=== PATIENT | female | born 1955 | race Caucasian/White ===

== ENCOUNTER → 2018-04-13 14:25 | Outpatient (CLI) | payer BC, SELFPAY ==
--- NOTE | 2018-04-13 | DI.MG.S_ITS ---
BILATERAL DIGITAL SCREENING MAMMOGRAM 3D/2D WITH CAD: 04/13/2018 CLINICAL: Routine screening. Family history of breast cancer. Comparison is made to exams dated: 01/21/2017 mammogram, 01/17/2016 mammogram, 12/14/2014 mammogram, and 12/01/2014 mammogram - [facility]. The tissue of both breasts is heterogeneously dense. This may lower the sensitivity of mammography. Current study was also evaluated with a Computer Aided Detection (CAD) system. No significant masses, calcifications, or other findings are seen in either breast. There has been no significant interval change. IMPRESSION: NEGATIVE There is no mammographic evidence of malignancy. A 1 year screening mammogram is recommended. This exam was interpreted at Station ID: [id number]. NOTE: For mammograms, a report in lay terms will be sent to the patient. Approximately 15% of breast malignancies will not be visualized mammographically. In the management of a palpable breast mass, a negative mammogram must not discourage biopsy of a clinically suspicious lesion. Electronically Signed By: Char ibanez/melanie:04/14/2018 08:57:26 letter sent: Normal Exam ACR BI-RADS Category 1: Negative 3341F
== END ==
PROVIDERS: PCP Family Medicine
DX: Z12.31 Encounter for screening mammogram for malignant neoplasm of breast (principal); M85.88 Other specified disorders of bone density and structure, other site; Z80.3 Family history of malignant neoplasm of breast; Z78.0 Asymptomatic menopausal state; Z82.62 Family history of osteoporosis
CPT/HCPCS: 77063; 77067; 77080

== ENCOUNTER → 2018-04-16 10:17 | Outpatient (CLI) | payer BC, SELFPAY ==
[2018-04-16 11:38] LABS: Add Manual Diff / Slide Review NO; Basophils Percent Auto 0.6 % (0-2); Eosinophils Percent Auto 1.7 % (2-4); Hemoglobin 12.9 g/dL (12.0-16.0); Lymphocytes Percent Auto 21.8 % (25-40); Mean Corpuscular HGB Conc 34.1 % (30-36); Mean Corpuscular Hemoglobin 31.3 PG (26-34); Mean Corpuscular Volume 91.9 fL (80-100); Monocytes Percent Auto 9.6 % (3-14); Neutrophils Absolute Auto 3300 /uL (3000-5900); Neutrophils Percent Auto 66.3 % (50-75); Platelet Count 263 X10^3/uL (150-400); Red Blood Cell Count 4.13 X10^6/uL (4.0-5.2); Red Cell Distribution Width 14.1 % (11.6-14.8)
[2018-04-16 11:51] LABS: Alanine Aminotransferase 52 IU/L (9-52); Albumin 4.6 g/dL (3.5-5.0); Albumin Globulin Ratio 1.7 (1.0-2.8); Alkaline Phosphatase 87 U/L (38-126); Aspartate Aminotransferase 42 IU/L (14-36); Bilirubin Total 0.7 mg/dL (0.2-1.3); Blood Urea Nitrogen 21 mg/dL (7-17); Calcium 9.3 mg/dL (8.4-10.2); Carbon Dioxide 31 mmol/L (22-32); Chloride 101 mmol/L (98-107); Cholesterol 183 mg/dL (140-199); Estimated Glomerular Filt Rate > 60.0 mL/min (>60); Globulin 2.7 g/dL (1.7-4.1); Glucose 99 mg/dL (80-110); HDL Cholesterol 79 mg/dL (40-60); HEMOLYSIS < 15 (0-50); LDL Cholesterol Calculated 88 mg/dL (<100); Magnesium 1.9 mg/dL (1.6-2.3); Potassium 3.7 mmol/L (3.4-5.1); Sodium 140 mmol/L (137-145); Total Protein 7.3 g/dL (6.3-8.2); Triglycerides 80 mg/dL (35-150)
[2018-04-16 12:28] LABS: Ferritin 21.4 ng/mL (11.1-264)
[2018-04-16 13:24] LABS: Thyroid Stimulating Hormone 1.74 uIU/mL (0.47-4.68)
== END ==
PROVIDERS: PCP Family Medicine; Visit Provider Family Medicine
DX: Z00.00 Encounter for general adult medical examination without abnormal findings (principal); E78.2 Mixed hyperlipidemia; G25.81 Restless legs syndrome
CPT/HCPCS: 36415; 80053; 80061; 82728; 83735; 84443; 85025

== ENCOUNTER → 2019-01-08 14:35 | Outpatient (CLI) | payer MEDICARE, OTHER, SELFPAY ==
--- NOTE | 2019-01-08 | DI.RAD.S_ITS ---
PROCEDURE: XR CERVICAL SPINE 4V OR 5V INDICATIONS: Neck pain TECHNIQUE: 5 views of the cervical spine were acquired. COMPARISON: None. FINDINGS: Bones: No fractures or dislocations to the C7 level. No suspicious bony lesions. There is straightening of cervical curvature with mild cervical kyphosis. There is degenerative disease, moderate at C5-C6 and mild at C4-C5. Mild bilateral facet arthropathy scattered in cervical spine. There is reduced range of motion on flexion with normal bony alignment. Soft tissues: Prevertebral soft tissues are normal in thickness. IMPRESSION: Degenerative disc and facet disease. Reduced range of motion on flexion. Dictated by: Sherin Prado M.D. on 01/08/2019 at 17:37 Approved by: Sherin Prado M.D. on 01/08/2019 at 17:39
== END ==
PROVIDERS: PCP Family Medicine; Visit Provider Family Medicine
DX: M54.2 Cervicalgia (principal); M50.30 Other cervical disc degeneration, unspecified cervical region
CPT/HCPCS: 72050

== ENCOUNTER → 2019-02-12 10:44 | Outpatient (CLI) | payer MEDICARE, OTHER, SELFPAY ==
--- NOTE | 2019-02-12 | DI.RAD.S_ITS ---
PROCEDURE: FL BARIUM SWALLOW INDICATIONS: COUGH COMPARISON: None. FINDINGS: Function: There is normal esophageal peristalsis. Spontaneous gastroesophageal reflux seen to level of the midesophagus. Morphology: Air-contrast images demonstrate normal mucosal morphology. Single contrast views show no esophageal strictures, extrinsic mass effects, or diverticula. Limited images of the stomach demonstrate normal appearance. IMPRESSION: Spontaneous gastroesophageal reflux. No stricture. Dictated by: Bhavin St M.D. on 02/12/2019 at 13:12 Approved by: Bhavin St M.D. on 02/12/2019 at 13:13
== END ==
PROVIDERS: PCP Family Medicine; Visit Provider Family Medicine
DX: K21.9 Gastro-esophageal reflux disease without esophagitis (principal)
CPT/HCPCS: 74220

== ENCOUNTER → 2019-02-18 11:40 | Outpatient (CLI) | payer MEDICARE, OTHER, SELFPAY | PROVIDERS: PCP Family Medicine; Visit Provider Family Medicine | DX: R20.2 Paresthesia of skin (principal) | CPT/HCPCS: 95885; 95886; 95911 ==

== ENCOUNTER 2019-02-19 12:49 | Day surgery (SDC) | payer MEDICARE, OTHER, SELFPAY ==
--- NOTE | 2019-02-19 | PATH_ITS ---
[facility] Accession Number: [id number] . 01 Material submitted: . colon - ASCENDING COLON POLYP 2 MM . 01 Clinical history: . ENCOUNTER FOR SCREENING FOR MALIGNANT NEOPLASM FAMILY HISTORY OF COLONIC POLYPS PERSONAL HISTORY OF COLONIC POLYPS . 02 Diagnosis: Ascending Colon Polyp, 2 mm, Biopsy: Colonic mucosa with prominent benign lymphoid aggregate. Negative for serrated lesion, dysplasia or malignancy. Additional step sections examined. MRV/02/24/2019 . 02 Electronically signed: . Ambrocio Baptiste MD, PhD, Pathologist NPI- [id number] . 01 Gross description: . ASCENDING COLON POLYP 2 MM: Received in formalin is 1 fragment(s) of patterson, soft tissue measuring 0.5 x 0.4 x 0.1 cm submitted entirely in 1 cassette(s) /CKI /CKI . 02 Pathologist provided ICD-10: K63.5 . 02 CPT . 916081 Performed at: 01 [facility] [address], [place], [place] [id number] MD Lev Serrato MD Phone: [phone] Performed at: 02 [facility] [address] [place], [place] [id number] MD Janet Mead MD Phone: [phone]
[2019-02-19] MEDS: SODIUM CHLORIDE 0.9% 1,000 ML 200 ML IV (13:15)
[2019-02-19] MEDS: HYOSCYAMINE 0.125 MG TABLET PO (13:20)
[2019-02-19 13:23] VITALS: BP 138/80; PULSE 68; RESP 16; TEMP 36.7; O2SAT 98; BMI 26.5
[2019-02-19] MEDS: fentaNYL 250 MCG/5 ML INJ IV (13:59)
[2019-02-19] MEDS: MIDAZOLAM 5 MG/5 ML VIAL IV (14:00)
--- NOTE | 2019-02-19 14:39 | PM.OP.ENDO ---
Operative Date/Time/Diagnoses Date of procedure: 02/19/19 Time of procedure: 14:03 Pre-op diagnosis: 1. Screening for colon cancer 2. History of colon polyps 3. Family history of colon Post-op diagnosis: other (1. Ascending polyp x1, 2 mm, removed with cold biopsy forceps) Procedure & Clinicians Study performed: Colonoscopy Same procedure as scheduled: Yes Indications: 1. Screening for colon cancer 2. History of colon polyps 3. Family history of colon polyps Surgeon: Moni Rodriguez Procedure Notes SCOAP/Timeout: 14:03 Procedure in detail: ENDOSCOPIST: Moni Rodriguez MD Anesthesia RN: Ailyn Chapman MD Anesthesia start time: 2:03 pm Anesthesia and time: 2:38 p.m. PROCEDURE: Colonoscopy with biopsy INDICATIONS: 1. Screening for colon cancer 2. History of colon polyps 3. Family history of colon polyps MEDICATION: Levsin 0.125 mg sublingual, incremental doses of Versed and fentanyl until appropriate level sedation achieved. ASA CLASS: 2 CECAL WITHDRAWAL TIME: 16 minutes COMPLICATIONS: None. EXTENT OF PROCEDURE: Cecum. QUALITY OF PREP: Good with portions of liquid stool. PROCEDURE: Prior to insertion of the colonoscope, a digital rectal examination was accomplished with circumferential palpation of the distal rectal mucosa without significant findings being noted. The high-definition colonoscope was passed into the rectum in the usual fashion and advanced over to the cecum without difficulty. The ileocecal valve, appendiceal stoma, and medial wall all could be inspected and no abnormalities were seen. ASCENDING COLON: As the colonoscope was withdrawn, care was taken to expose and inspect the haustral folds and a 2 mm polyp was noted and removed with cold biopsy forceps, excellent hemostasis noted. HEPATIC FLEXURE: Normal no polyps, diverticula or other abnormalities. TRANSVERSE COLON: Normal no polyps, diverticula or other abnormalities. DESCENDING COLON: Normal no polyps, diverticula or other abnormalities. SIGMOID COLON: Normal no polyps, diverticula or other abnormalities. RECTUM: Normal. J maneuver was produced. There was no significant perianal disease. The J maneuver was broken. The remainder of the rectum was inspected and there was no external hemorrhoid disease. The scope was withdrawn. IMPRESSION: 1. Ascending polyp x1, 2 mm, removed with cold biopsy forceps PLAN: 1. Follow-up in clinic status post pathology results. The possibility of a missed lesion including a malignancy has been discussed with the patient previously. Potential alarm symptoms have been discussed and should be reported immediately. Scope withdrawal time: 16 minutes Sedation minutes: 35 Findings: polyp Specimen(s): other (Ascending polyp x1, 2 mm) Complications: none Impression: As above Post-procedure Recommendations: Will call with biopsy results Plan for aftercare: Routine post colonoscopy care instructions provided. Follow up: weeks (Two) Disposition: PACU
[2019-02-19 14:44] VITALS: BP 111/66; PULSE 58; RESP 10; TEMP 36; O2SAT 97
[2019-02-19 14:49] VITALS: BP 112/67; PULSE 68; RESP 12; O2SAT 95
[2019-02-19 14:56] VITALS: BP 112/71; PULSE 60; RESP 19; O2SAT 98
--- NOTE | 2019-02-19 14:57 | SUR.PHASEI ---
To pacu awake, oriented.HOB elevated, juice given. Report given to Martine Arzola RN. stable, and pleasant
[2019-02-19 15:12] VITALS: BP 112/67; PULSE 58; RESP 15; TEMP 36.1; O2SAT 98
== END 2019-02-19 15:20 | disposition home or self-care (01) ==
LOC: ENDO 12:51
PROVIDERS: PCP Family Medicine; Visit Provider Student in an Organized Health Care Education/Training Program
PROC: 0DJD8ZZ Inspection of Lower Intestinal Tract, Via Natural or Artificial Opening Endoscopic (ICD-10-PCS; CPT 45378; principal; 2019-02-19 14:00)
DX: Z86.010 Personal history of colon polyps (principal); D12.2 Benign neoplasm of ascending colon
CPT/HCPCS: 45380; 88305; J2250; J3010

== ENCOUNTER → 2019-04-05 15:33 | Outpatient (CLI) | payer MEDICARE, OTHER, SELFPAY ==
--- NOTE | 2019-04-05 | DI.RAD.S_ITS ---
PROCEDURE: XR KNEE LT 3V INDICATIONS: PAIN IN LEFT KNEE TECHNIQUE: 3 views of the knee were acquired. COMPARISON: None. FINDINGS: Bones: No fractures or dislocations. No suspicious bony lesions. Tricompartmental periarticular osteophyte formation. Soft tissues: Moderate joint effusion. No suspicious soft tissue calcifications. IMPRESSION: Moderate joint effusion and mild early knee joint degeneration. Dictated by: Jamshid JANSEN Interpreted: Beni Fierro MD on 04/05/2019 at 16:07 Approved by: Beni Fierro M.D. on 04/05/2019 at 17:07
== END ==
PROVIDERS: Family Provider Physical Therapist; PCP Family Medicine; Visit Provider Family Medicine
DX: M25.562 Pain in left knee (principal); M25.462 Effusion, left knee
CPT/HCPCS: 73562

== ENCOUNTER 2019-04-22 19:01 | Emergency (ER) | payer MEDICARE, OTHER, SELFPAY ==
[2019-04-22 19:06] VITALS: BP 104/70; PULSE 62; RESP 16; TEMP 36.7; O2SAT 97
--- NOTE | 2019-04-22 19:18 | DI.RAD.S_ITS ---
PROCEDURE: XR KNEE LT 3V INDICATIONS: pain sp fall/twisting TECHNIQUE: 3 views of the knee were acquired. COMPARISON: [facility], CR, XR KNEE LT 3V, 04/05/2019, 15:36. FINDINGS: Bones: No fractures or dislocations. No suspicious bony lesions. Soft tissues: No joint effusion. No suspicious soft tissue calcifications. IMPRESSION: No acute radiographic findings. If pain persists, followup imaging in 5-7 days is recommended to exclude occult fracture. Dictated by: Char Overton M.D. on 04/22/2019 at 19:47 Approved by: Char Overton M.D. on 04/22/2019 at 19:51
--- NOTE | 2019-04-22 21:03 | ED_ITS ---
HPI - Extremity Injury (Lower) <JOSE MARIA Herring - Last Filed: 04/22/19 21:10> General Chief Complaint: Extremity Injury, Lower Stated Complaint: twisted her left knee and can now barely stand on Time Seen by Provider: 04/22/19 19:16 Source: patient Mode of arrival: Wheelchair Limitations: no limitations History of Present Illness HPI Narrative: The patient is a very memorable and enjoyable 63-year-old female nonsmoker with history of hypertension who presents with a chief complaint of left knee pain. She states that she has a history of left knee pain, has been receiving physical therapy for a when she twisted felt a pop and then had a difficulty ambulating afterwards. She did not fall. She denies any other trauma to the knee, but states she rather twisted and felt a pop. She states her knee now feels unstable. She has recently had carpal tunnel surgery and has leftover pain medication. She took a [place] and states that I had slight improvement on her pain. Related Data Home Medications Medication Instructions Recorded Confirmed glucosamine sulfate [Cidatrine] 500 mg PO DAILY #0 10/11/17 02/19/19 cmp estradiol harpreet See Rx Instructions .ROUTE .COMPLEX 03/10/18 02/19/19 albuterol sulfate [Ventolin HFA] 1 puff INHALATION BID PRN 02/19/19 02/19/19 Previous Rx's Medication Instructions Recorded Flovent Diskus 50 mcg INH BID #1 pkg 03/11/17 losartan 100 mg tablet 100 mg PO QDAY #90 tab 01/15/18 pramipexole 0.5 mg tablet 0.5 mg PO QDAY #90 tab 01/15/18 simvastatin 40 mg tablet 40 mg PO HS #90 tab 01/15/18 escitalopram oxalate 20 mg tablet 20 mg PO QDAY #90 tab 02/02/18 hydrochlorothiazide 50 mg tablet 50 mg PO QDAY #90 tab 02/02/18 Allergies Allergy/AdvReac Type Severity Reaction Status Date / Time azithromycin [From ZITHROMAX] Allergy Unknown RASH Verified 01/05/19 11:41 Review of Systems <JOSE MARIA Herring - Last Filed: 04/22/19 21:10> Review of Systems Narrative: GENERAL: Denies chills, fatigue, malaise, fever, sweats. HEENT: Denies sinus pain, ear pain, sore throat, difficulty swallowing, dizziness. RESPIRATORY: Denies dyspnea, cough, wheezing, hemoptysis, sputum. CARDIOVASCULAR: Denies chest pain, palpitations, orthopnea, edema, GASTROINTESTINAL: Denies nausea, vomiting, abdominal pain, diarrhea, constipation, melena. : Denies dysuria, frequency, incontinence, hematuria, urinary retention. MUSCULOSKELETAL: See HPI SKIN: Denies rash, skin lesions, or other NEUROLOGIC: Denies weakness, headache, numbness, change in speech, confusion, seizures, incoordination. PSYCHIATRIC: No concerning psychosocial issues. 12 point review of systems is negative except for those stated above Patient History <JOSE MARIA Herring - Last Filed: 04/22/19 21:10> Medical History Abnormal chest xray (Resolved ~2007) Actinic keratosis (Chronic ~2009) ADHD (Chronic) Anxiety (Chronic) Chicken pox (Resolved) Coccidioidomycosis (Resolved ~10/2007) Colon polyps (Chronic ~2009) Hyperlipidemia (Chronic ~1994) Hypertension (Chronic ~1989) Measles (Resolved) Restless leg syndrome (Chronic ~1994) Seasonal allergies (Chronic ~2008) Skin cancer (Chronic ~2008) Sleep apnea (Chronic ~2009) Surgical History Anesthesia (Resolved) Status post colonoscopy Family History Father Age: 92 Congestive heart failure Skin cancer Heart disease Hypertension High cholesterol Grandmother Heart disease Mother Age: 92 Hypertension Grandmother Heart disease Hypertension Sister Age: 67 Pre-diabetes Hypertension High cholesterol Grandfather Leukemia Social History household members: none Smoking Status: Never smoker alcohol intake frequency: 0-2 drinks per day Substance Use Type: does not use Exam <JOSE MARIA Herring - Last Filed: 04/22/19 21:10> Narrative Exam Narrative: GENERAL: This is a well-nourished, well-developed patient, in no acute distress HEAD: Atraumatic. Normocephalic. No temporal or scalp tenderness. EYES: Pupils equal round and reactive. Extraocular motions intact. No scleral icterus. No injection or drainage. ENT: Nose without bleeding, purulent drainage or septal hematoma. Throat without erythema, tonsillar hypertrophy or exudate. Uvula midline. Airway patent. NECK: Trachea midline. No JVD or lymphadenopathy. Supple, nontender, no meningeal signs. CARDIOVASCULAR: Regular rate and rhythm RESPIRATORY: No cough. No increased respiratory effort. No accessory muscle use. EXTREMITIES: Generalized pain to palpation left knee. Patient is able to pick left leg off the stretcher and extend knee. Positive left pedal pulses. Negative anterior posterior drawer test. Pain on varus and valgus, pain on Melanie's. Catching on Melanie's. BACK: Nontender without deformity or crepitance. No flank tenderness. NEURO: AOx3. SKIN: No rash or erythema on visible skin. No ecchymosis noted on the. Initial Vital Signs Initial Vital Signs: Vital Signs Temperature 98.0 F 04/22/19 19:06 Pulse Rate 62 04/22/19 19:06 Respiratory Rate 16 04/22/19 19:06 Blood Pressure 104/70 04/22/19 19:06 Pulse Oximetry 97 04/22/19 19:06 <Maria R Esquivel DO - Last Filed: 04/23/19 00:50> Initial Vital Signs Initial Vital Signs: Vital Signs Temperature 98.0 F 04/22/19 19:06 Pulse Rate 62 04/22/19 19:06 Respiratory Rate 16 04/22/19 19:06 Blood Pressure 104/70 04/22/19 19:06 Pulse Oximetry 97 04/22/19 19:06 Procedures <JOSE MARIA Herring - Last Filed: 04/22/19 21:10> Orthopedic Splinting/Casting Injury #1: Side: left Lower Extremity Injury Location: knee Lower Extremity Immobilizer: knee immobilizer Post splinting neuro exam: intact Post splinting vascular exam: intact Placed by: Nursing Course <JOSE MARIA Herring - Last Filed: 04/22/19 21:10> Orders Ordered: ED Orders 04/22/19 19:18 XR knee LT 3V Stat Vital Signs Vital signs: Vital Signs - 8 hr 04/22/19 19:06 04/22/19 21:05 Temperature 98.0 F Pulse Rate 62 61 Respiratory Rate 16 15 Blood Pressure 104/70 Blood Pressure [Left Arm] 110/72 Pulse Oximetry 97 98 <Maria R Esquivel DO - Last Filed: 04/23/19 00:50> Orders Ordered: ED Orders 04/22/19 19:18 XR knee LT 3V Stat Vital Signs Vital signs: Vital Signs - 8 hr 04/22/19 19:06 04/22/19 21:05 Temperature 98.0 F Pulse Rate 62 61 Respiratory Rate 16 15 Blood Pressure 104/70 Blood Pressure [Left Arm] 110/72 Pulse Oximetry 97 98 MDM - Extremity Injury (Lower) <JOSE MARIA Herring - Last Filed: 04/22/19 21:10> Imaging Data Knee x-ray: Radiologist's impression: [address] [address] XRay Report Signed Patient: Joan Gallagher GMR#: [id number] : 4Acct:[id number] Age/Sex: 63 / FDate of Service: 04/22/19 Loc: ED Accession Number: [id number] Procedure: XR knee LT 3V Ordering Provider: Chyna Miles PROCEDURE: XR KNEE LT 3V INDICATIONS: pain sp fall/twisting TECHNIQUE: 3 views of the knee were acquired. COMPARISON: [facility], , XR KNEE LT 3V, 04/05/2019, 15:36. FINDINGS: Bones: No fractures or dislocations. No suspicious bony lesions. Soft tissues: No joint effusion. No suspicious soft tissue calcifications. IMPRESSION: No acute radiographic findings. If pain persists, followup imaging in 5-7 days is recommended to exclude occult fracture. Dictated by: Char Overton M.D. on 04/22/2019 at 19:47 Approved by: Char Overton M.D. on 04/22/2019 at 19:51 MDM Narrative Medical decision making narrative: The patient is a memorable an enjoyable 63-year-old female who presents with a chief complaint of acute knee pain after twisting it today. Her x-ray shows no fracture, but I highly suspect a soft tissue injury. She is placed in a knee immobilizer for stability and is able to ambulate without incident after this placement. She is neurovascularly intact before and after. I discussed at length rest ice compression elevation as well as [id number] pain medications as needed and able. Encouraged follow-up with PCP, and gave her contact information for [facility]. Patient was discharged with daughter. They both state understanding of return precautions as well as follow-up care and have no questions or concerns upon discharge. Discharge Plan Departure Patient Disposition: Home Clinical Impression: Acute knee pain Qualifiers: Laterality: left Qualified Code(s): M25.562 - Pain in left knee Discharge Date/Time: 04/22/19 21:22 Instructions: How To Perform RICE (Rest, Ice, Compress, Elevate), DI for Knee Pain Activity Restrictions/Additional Instructions: Thank you for being such a memorable and enjoyable patient. As I discussed, your x-ray shows no acute fracture. This does not rule out a soft tissue injury such as a ligament or tendon injury. It is important that you follow up with primary care provider, especially if worsening or no improvement. There can be fractures that did not show up on initial x-ray. Please follow up with primary care provider in the next few days. I have also given you contact information for [facility] I suggest rest ice compression elevation. As well as [id number] pain medications as needed and able. Prescriptions: No Action Flovent Diskus 50 MCG blister with device 50 mcg INH BID Qty: 1 RF: 0 glucosamine sulfate [Cidatrine] 500 MG tablet 500 mg PO DAILY Qty: 0 RF: 0 escitalopram oxalate 20 mg tablet 20 mg PO QDAY Qty: 90 RF: 3 hydrochlorothiazide 50 mg tablet 50 mg PO QDAY Qty: 90 RF: 3 losartan 100 mg tablet 100 mg PO QDAY Qty: 90 RF: 3 pramipexole 0.5 mg tablet 0.5 mg PO QDAY Qty: 90 RF: 3 simvastatin 40 mg tablet 40 mg PO HS Qty: 90 RF: 3 cmp estradiol harpreet See Rx Instructions .ROUTE .COMPLEX RF: 0 albuterol sulfate [Ventolin HFA] 90 MCG/PUFF HFA aerosol inhaler 1 puff INHALATION BID PRN (Reason: Shortness Of Breath) RF: 0 Referrals: [facility] [Provider Group] Ranjith Boone MD [Primary Care Provider] -
[2019-04-22 21:05] VITALS: BP 110/72; PULSE 61; RESP 15; O2SAT 98
== END 2019-04-22 21:22 | disposition home or self-care (01) ==
PROVIDERS: Emergency Provider Nurse Practitioner Family; Family Provider Physical Therapist; PCP Family Medicine
DX: M25.562 Pain in left knee (principal)
CPT/HCPCS: 29530; 73562; 99283

== ENCOUNTER → 2019-05-24 12:06 | Outpatient (CLI) | payer MEDICARE, OTHER, SELFPAY ==
--- NOTE | 2019-05-24 | DI.MG.S_ITS ---
BILATERAL DIGITAL SCREENING MAMMOGRAM 3D/2D WITH CAD: 05/24/2019 CLINICAL: Routine screening. Family history of breast cancer. Comparison is made to exams dated: 04/13/2018 mammogram, 01/21/2017 mammogram, 01/17/2016 mammogram, 12/01/2014 mammogram, and 09/17/2013 mammogram - [facility]. The tissue of both breasts is heterogeneously dense. This may lower the sensitivity of mammography. Current study was also evaluated with a Computer Aided Detection (CAD) system. No significant masses, calcifications, or other findings are seen in either breast. There has been no significant interval change. IMPRESSION: NEGATIVE There is no mammographic evidence of malignancy. A 1 year screening mammogram is recommended. This exam was interpreted at Station ID: [id number]. NOTE: For mammograms, a report in lay terms will be sent to the patient. Approximately 15% of breast malignancies will not be visualized mammographically. In the management of a palpable breast mass, a negative mammogram must not discourage biopsy of a clinically suspicious lesion. Electronically Signed By: Williams barrientos/melanie:05/24/2019 17:58:05 letter sent: Normal Exam ACR BI-RADS Category 1: Negative 3341F
== END ==
PROVIDERS: Family Provider Physical Therapist; PCP Family Medicine; Visit Provider Family Medicine
DX: Z12.31 Encounter for screening mammogram for malignant neoplasm of breast (principal); Z80.3 Family history of malignant neoplasm of breast
CPT/HCPCS: 77063; 77067

== ENCOUNTER → 2019-06-10 06:36 | Outpatient (CLI) | payer MEDICARE, OTHER, SELFPAY ==
--- NOTE | 2019-06-10 | DI.MRI.S_ITS ---
PROCEDURE: MR KNEE LT WO/W CON INDICATIONS: Pain in left knee TECHNIQUE: Noncontrast sagittal PD fast spin echo and T2 fast spin echo with fat saturation, sagittal 3-D FLASH with fat saturation; coronal T1 spin echo and PD fast spin echo with fat saturation, and axial T1 spin echo and PD fast spin echo with fat saturation through the knee. Post-contrast axial, coronal, and sagittal T1 spin echo with fat saturation through the knee. COMPARISON: None. FINDINGS: Image quality: Excellent. Menisci: There is peripheral displacement of medial meniscus bowing medial collateral ligament. Oblique tear involving the body and posterior horn of medial meniscus is seen extending to inferior articulating surface. No evidence of focal lateral meniscal tear. The The meniscal root ligaments appear intact. Cruciate ligaments: The anterior and posterior cruciate ligaments appear intact. Medial structures: There is very low-grade proximal MCL sprain near its femoral insertion. The posterior oblique ligament, semimembranosus tendon insertions, and oblique popliteal liagment, and meniscocapsular junction appear intact. Visualized portions of the pes anserinus tendons appear normal. No abnormal bursal fluid. Lateral structures: The lateral collateral ligament, long and short heads of the biceps femoris tendon appear intact. The popliteus tendon appears normal; the popliteofibular ligament appears intact. The posterosuperior and anteroinferior popliteomeniscal fascicles appear intact. The arcuate and fabellofibular ligaments appear intact, around the lateral inferior geniculate artery. Iliotibial band appears normal. Anterior structures: The quadriceps and patellar tendons appear intact. Patellar alignment is normal. No femoral trochlear dysplasia or ventral trochlear prominence. No edema in the infrapatellar fat pad. Bones and cartilage: No suspicious osseous enhancement. Marrow edema is seen in medial periphery of the medial femoral condyle and adjacent medial portion of proximal tibia extending to medial tibial plateau. No discrete fracture line is seen. Marrow edema is also noted involving medial portion of patella with no definite fracture line seen. There is low-grade chondromalacia involving medial femoral tibial compartment. Chondromalacia involving medial facet of patella cartilage is also seen extending to the apex. Joint space: There is small to moderate amount of joint fluid, no gross loose body. No Gonzalez's cyst. Normal appearing synovial plicae are incidentally noted. No suspicious soft tissue enhancement. IMPRESSION: 1. Oblique tear involving body and posterior horn of medial meniscus extending to inferior articulating surface. No focal lateral meniscal tear. 2. Likely bony contusion involving medial femoral condyle and adjacent medial portion of proximal tibia. Likely bony contusion involving medial portion of patella. No definite fracture or dislocation. 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 3. Small to moderate amount of joint fluid, no gross intra-articular loose body. 4. Cruciate ligaments are intact. Very low-grade proximal MCL sprain. 5. No area of abnormal contrast enhancement. Dictated by: Christiano Murcia M.D. on 06/10/2019 at 9:23 Approved by: Christiano Murcia M.D. on 06/10/2019 at 9:38
== END ==
PROVIDERS: Family Provider Physical Therapist; PCP Family Medicine; Visit Provider Internal Medicine
DX: M25.562 Pain in left knee (principal); S83.242A Other tear of medial meniscus, current injury, left knee, initial encounter; M22.42 Chondromalacia patellae, left knee
CPT/HCPCS: 73723

== ENCOUNTER → 2020-01-31 08:58 | Outpatient (CLI) | payer MEDICARE, OTHER, SELFPAY ==
--- NOTE | 2020-01-31 09:00 | DI.RAD.S_ITS ---
PROCEDURE: XR HAND RT MIN 3V INDICATIONS: R hand pain with erythema, 3rd-5th digits TECHNIQUE: 3 views of the hand(s) acquired. COMPARISON: None. FINDINGS: Bones: No fractures or dislocations. Carpal bones are normally aligned. No suspicious bony lesions. No trauma found. Soft tissues: No suspicious soft tissue calcifications. 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 Dictated by: Beni Fierro M.D. on 01/31/2020 at 11:43 Approved by: Beni Fierro M.D. on 01/31/2020 at 11:43
== END ==
PROVIDERS: Family Provider Physical Therapist; PCP Family Medicine; Referring Provider Physician Assistant; Visit Provider Physician Assistant
DX: M79.641 Pain in right hand (principal); M19.041 Primary osteoarthritis, right hand
CPT/HCPCS: 73130